=== PATIENT | female | born 1985 | race Caucasian/White ===

== ENCOUNTER 2024-04-02 01:11 | Emergency (ER) | payer MEDICAID ==
[~2024-04-02] VITALS: Ht 167.6 cm; Wt 100.0 kg
[~2024-04-02 01:11] MED LIST: METH4TAB PO; TRIA15CR3 TP
[2024-04-02 01:16] VITALS: BP 193/130; PULSE 114; RESP 16; TEMP 97.8; O2SAT 100
== END 2024-04-02 05:23 | disposition left against medical advice (07) ==
LOC: ER 01:11
DX: S91.351A Open bite, right foot, initial encounter (principal); Z53.21 Procedure and treatment not carried out due to patient leaving prior to being seen by health care provider; W57.XXXA Bitten or stung by nonvenomous insect and other nonvenomous arthropods, initial encounter; Y93.89 Activity, other specified; Y92.89 Other specified places as the place of occurrence of the external cause; Y99.8 Other external cause status